=== PATIENT | female | born 1985 | race Caucasian/White ===

== ENCOUNTER 2024-07-13 21:46 | Emergency (ER) | payer OTHER, SELFPAY ==
[2024-07-13 21:47] VITALS: BMI 36.0
[2024-07-13 22:35] VITALS: BP 118/65; PULSE 66; RESP 18; TEMP 36.8; O2SAT 97
--- NOTE | 2024-07-13 22:52 | XR_ITS ---
EXAMINATION: Ankle, left 3 views . Technique: Ankle AP, oblique, lateral 3 views Date and time of exam: July 13, 2024 1110 hours INDICATIONS: Injury to the ankle today, ankle pain. FINDINGS: 12 mm chip fracture off the anterior lateral distal tibia No ankle dislocation Fibula intact IMPRESSION: Acute appearing chip fracture off the anterior lateral distal tibia
--- NOTE | 2024-07-13 22:52 | XR_ITS ---
Examination: Foot, left, 3 views Technique: AP, oblique, lateral views foot, 3 views Date and time of exam: July 13, 2024 1109 hours INDICATIONS: Injury to the foot today, foot pain FINDINGS: 13 mm bone density projects overlying the calcaneus on the lateral view Please see the ankle report IMPRESSION: Recommend CT examination of foot follow-up to assess etiology of the 13 mm bone fragment overlying the calcaneus
--- NOTE | 2024-07-13 22:53 | PD.EDRME ---
Rapid Medical Screening Exam RME Arrival date/time: 07/13/24 21:46 38 year old male present to ED for c/o of ankle/foot injury today I have greeted and performed a focused initial assessment of this patient. A comprehensive ED assessment and evaluation of the patient, analysis of all test results, and completion of the medical decision making process will be conducted by additional ED providers. Chief Complaint: Extremity Injury, Lower Time Seen by Provider: 07/13/24 21:50 Vital signs: Vital Signs Temperature 98.2 F 07/13/24 22:35 Pulse Rate 66 07/13/24 22:35 Respiratory Rate 18 07/13/24 22:35 Blood Pressure 118/65 07/13/24 22:35 Pulse Oximetry (%) 97 07/13/24 22:35 Oxygen Delivery Method Room Air 07/13/24 22:35
--- NOTE | 2024-07-13 23:31 | XR_ITS ---
Examination: CT left foot, without contrast. 2-D sagittal reconstructions. 2-D coronal reconstructions. 3-D reconstructions. Date and time of exam:July 13, 2024 at 11:53 PM INDICATIONS: Patient fell today with injury of the foot, foot pain CTDI: vol (mGy):6.06 DLP: (mGycm):1199 Technique: Multiple 1.25 mm axial sections of the left foot have been obtained. 2-D sagittal and coronal reconstructions have been obtained. 3-D reconstructions have been obtained. Low dose protocols were performed. One or more of the following dose reduction techniques were used; automated exposure control, adjustment of the mA and/or KV according to patient size, use of iterative reconstruction technique. Findings: Acute fractures off the distal anterior lateral tibia, axial image 29 Distal fibular intact Sclerotic area in the calcaneus 15 mm which is not a fracture Tarsal bones metatarsals and digits intact IMPRESSION: Small acute fractures off the anterior lateral distal tibia intra-articular
--- NOTE | 2024-07-14 01:38 | PRELIM_ITS ---
CT scan of the left foot without intravenous contrast (axial sections with sagittal and coronal reformats) July 13, 2024 2353 hours. 3D reconstructed images were also provided. Clinical History: Foot/ankle injury abnormal xray finding No prior study is available for comparison. Findings: Evaluation of the phalanges are limited due to motion artifact. There is an acute mildly comminuted and displaced intra-articular fracture of the anterolateral cortex of the distal tibia. No dislocation of the ankle joint is seen. The other visualized bones and joints are intact. There is a small scler otic lesion in the calcaneum, likely bone island. Soft tissue swelling is seen around the ankle joint. The muscles and long tendons appear intact. No intraarticular loose body is seen. Impression: Acute mildly comminuted and displaced intra-articular fracture of the anterolateral cortex of the distal tibia with soft tissue swelling. Other findings as described above. Report Electronically Signed By: Roger Kumar 07/14/2024 1:37:52 AM [EST]
--- NOTE | 2024-07-14 02:10 | PD.EDLOWEX ---
Lower Extremity Injury RME/HPI General Chief Complaint: Extremity Injury, Lower Stated Complaint: FELL, LEFT ANKLE PAIN Time Seen by Provider: 07/13/24 21:50 Arrival date/time: 07/13/24 21:46 38 year old female present to emergency room with c/o of GLF while walking down a porch causing ankle to bend/twisted. unable to bear weight without pain. LOCATION: ankle SEVERITY: Symptoms are described as being severe with limitations on activities of daily living QUALITY: Symptoms are described as being dull or achy CONTEXT: GLF twist/bend ankle/foot DURATION/TIMING: The symptoms started approximately immediately prior to arrival ago and have been constant this then. ASSOCIATED SYMPTOMS: The patient is unable to identify any other associated symptoms. MODIFYING FACTORS: The patient is unable to identify any alleviating or aggravating symptoms. PERTINENT ROS: no fevers, no headache, no neck or chest pain, no unexplained nausea or vomiting, no focal neurological deficits REVIEW OF SYSTEMS: See History of Present Illness - with the exception of those mentioned in the history of present illness, all other systems reviewed and reported as negative GENERAL: In general the patient is awake, interactive, in an emergency department gurney. HEAD/EYES/EARS/NOSE/THROAT: normo-cephalic, atraumatic, mucus membranes are moist, anicteric, palpebral conjunctiva is pink, trachea is midline. CARDIOVASCULAR: regular rate and regular rhythm, no murmurs, heart sounds are not distant, strong pulses in all four extremities that are equal and symmetric bilateral upper and lower extremities, normal capillary refill. CHEST/PULMONARY: normal chest rise and fall, good air movement, clear to auscultation bilaterally, normal inspiratory to expiratory ratios without evidence of respiratory distress. NECK: No midline/Paraspinal tenderness, no step off ROM/Strenght intact No Kernig and bruzinski sign. No trauma ABDOMEN: soft, not tender, no masses appreciated BACK: normal range of motion without pain. NEUROLOGICAL: cranio-facial features are symmetric, moves all four extremities equally without obvious limitations or weakness. EXTREMITY: Left lateral ankle tenderness, with mild swelling, no achillis tenderness, no tenderness to palpation over the long bones or large joints of the bilateral upper extremities no unilateral leg swelling and no peripheral edema. SKIN: warm, dry, well-perfused, no jaundice, no rash, no telangiectasias or petechia. PSYCH: calm, cooperative, no evidence of psychosis or agitation RME / HPI RME / HPI Narrative: 07/13/24 21:46 38 year old male present to ED for c/o of ankle/foot injury today I have greeted and performed a focused initial assessment of this patient. A comprehensive ED assessment and evaluation of the patient, analysis of all test results, and completion of the medical decision making process will be conducted by additional ED providers. Related Data Previous Rx's ?Medication ?Instructions ?Recorded oxycodone-acetaminophen 5 mg-325 1 tab PO Q8H PRN pain #20 tabs 07/14/24 mg tablet (Percocet) Allergies Allergy/AdvReac Type Severity Reaction Status Date / Time Penicillins Allergy Verified 07/13/24 21:49 Course Course Course Narrative: review xray and ct crutches, splint CD, Results given to patient rx: percocet #20 for break through pain nonweight bear, follow up with PCP for referral to ortho Quality Measures none Orders Category Date Time Status Crutches .NOW Care 07/14/24 02:21 Active Splint / Immobilizer STAT Care 07/14/24 02:[address] foot LT wo con Stat Exams 07/13/24 23:31 Taken XR ankle comp LT min 3V Stat Exams 07/13/24 22:52 Completed XR foot comp LT min 3V Stat Exams 07/13/24 22:52 Completed Reevaluation(s) Reevaluation #1: pain improved and comfortable with plan Vital Signs Vital signs: Vital Signs Temperature 98.2 F 07/13/24 22:35 Pulse Rate 66 07/13/24 22:35 Respiratory Rate 18 07/13/24 22:35 Blood Pressure 118/65 07/13/24 22:35 Pulse Oximetry (%) 97 07/13/24 22:35 Oxygen Delivery Method Room Air 07/13/24 22:35 Extremity Injury, Lower Patient data External records reviewed:: None Clinical information provided by:: patient and family Social determinants that could affect healthcare access:: none Patient has the following chronic illnesses:: n/a How is presenting disease/condition affected by chronic disease/condition?: no chronic disease Evaluation data The following diagnostics were reviewed and interpreted by me:: radiology exam(s) Lab and/or radiology exams considered but not ordered:: n/a Interpretation Summary: xray:12 mm chip fracture off the anterior lateral distal tibia No ankle dislocation Fibula intact IMPRESSION: Acute appearing chip fracture off the anterior lateral distal tibia 13 mm bone density projects overlying the calcaneus on the lateral view Please see the ankle report ct: acute mildy comminuted and displaced intra articular fracture of cortex of the distal tiba soft tissue swelling Medications / Prescriptions Medications or Prescriptions considered but not ordered:: n/a Medication administrations:: n/a Consultations Consultation(s) initiated? (list below): No Diagnosis Extremity Injury, Lower Differential Diagnosis: ankle sprain and strain and ankle fracture Most likely diagnosis given after review of the tests above:: ankle fracture Admission Indicated Admission indicated?: not indicated Admission Request Was there a request for admission?: No Disposition Plan Disposition Plan: Discharge Discharge Attestation Discharge Attestation: The patient and all family members were given an opportunity to ask questions and understood the discharge instructions. Discharge instructions specifically effects, indications for sooner follow up or return to the emergency department, and the expected course of current diagnosis. Patient condition: Stable Discharge Plan Plan Patient Disposition: HOME (Self Care) Health Concerns: Follow up with your PCP for referral to Ortho CD and results given to patient Return to ED if symptoms worsen Prescriptions/Referrals Prescriptions/Med Rec: New oxycodone-acetaminophen [Percocet] 5-325 mg tablet 1 tab PO Q8H MDD 3 PRN (Reason: pain) Qty: 20 0RF Referrals: No Primary/Family,Physician [Primary Care Provider] - In 1 week Problem List Clinical Impression: Ankle fracture Patient/Caregiver Discharge Instructions Education Materials: ED Fracture, Lower Extremity Print Language: Estonian Stand Alone Forms: [employer] Award Info., Work/School Release, Patient Portal Info Letter
== END 2024-07-14 03:37 | disposition home or self-care (01) ==
PROVIDERS: Emergency Provider Emergency Medicine
DX: S82.392A Other fracture of lower end of left tibia, initial encounter for closed fracture (principal); X50.1XXA Overexertion from prolonged static or awkward postures, initial encounter; Y93.01 Activity, walking, marching and hiking; Y92.008 Other place in unspecified non-institutional (private) residence as the place of occurrence of the external cause
CPT/HCPCS: 29515; 73610; 73630; 73700; 99284